=== PATIENT | female | born 1960 | race Caucasian/White ===

== ENCOUNTER 2021-08-30 17:10 | Inpatient (IN) ==
[2021-08-31] MEDS ORDERED: D5% in Water 1,000 ML IVC PRN ×2 (00:54→17:04)
[2021-08-31] MEDS ORDERED: *HR* Dextrose 50 % in Water (Syg) 50 ML SYRINGE IVP PRN ×2 (00:54→17:04)
[2021-08-31] MEDS ORDERED: Dextrose Gel 15 GM/37.5 ML TUBE PO PRN ×4 (00:54→17:04)
[2021-08-31 01:47] LABS: Mean Platelet Volume 10.2 fL (9.4-12.4)
[2021-08-31 01:49] LABS: Hemoglobin 8.5 g/dL (11.5-15.4); Immature Platelets 2.7 % (1.1-6.1); Mean Corpuscular HGB Conc 29.3 g/dL (31.6-35.5); Mean Corpuscular Hemoglobin 24.2 pg (28.0-33.3); Mean Corpuscular Volume 82.6 fL (83.0-100.0); Red Blood Count 3.51 M/mcL (3.82-4.97); Red Cell Distribution Width 14.4 % (11.5-14.5); White Blood Count 6.4 K/mcL (4.3-11.1)
[2021-08-31] MEDS ORDERED: tiZANidine 4 MG TABLET PO PRN ×2 (01:51→17:04)
[2021-08-31] MEDS ORDERED: Perflutren Lipid Microsphere 1.3 ML in 0.9 % Sodium Chloride 8.7 ML IVP PRN ×2 (01:54→17:04)
[2021-08-31] MEDS ORDERED: Acetaminophen 325 MG TABLET PO PRN (01:55)
[2021-08-31] MEDS ORDERED: *HR* OxyCODONE Immed Rel 5 MG TABLET PO PRN (01:55)
[2021-08-31] MEDS ORDERED: Naloxone 0.4 MG/ML INJ IVP PRN ×2 (01:55→17:04)
[2021-08-31 01:59] LABS: INR 1.2; Prothrombin Time 12.9 Seconds (9.4-12.1)
[2021-08-31] MEDS ORDERED: 0.9 % Sodium Chloride 1,000 ML IVC SCH (02:00)
[2021-08-31 02:02] LABS: Activated Partial Thrombo Time 28.4 Seconds (26.0-36.0)
[2021-08-31] MEDS ORDERED: Prochlorperazine 10 MG/2 ML VIAL IVP PRN ×2 (02:03→17:04)
[2021-08-31 02:05] LABS: Albumin 3.8 g/dL (3.5-5.7); Magnesium 1.7 mg/dL (1.6-2.6)
[2021-08-31 02:06] LABS: % Iron Saturation 20 % (15-50); BUN/Creatinine Ratio 24 (6-26); Blood Urea Nitrogen 23 mg/dL (8-23); Calcium 8.6 mg/dL (8.6-10.3); Carbon Dioxide 28 mEq/L (23-29); Chloride 108 mEq/L (98-107); Chol/HDL Ratio 3.8 (0-4.9); Cholesterol 190 mg/dL (< 200); Glucose 170 mg/dL (70-105); HDL Cholesterol 50 mg/dL (40-59); Iron 84 mcg/dL (50-170); LDL Cholesterol,Calculated 102 mg/dL (< 100); Osmolality,Calculated 306 (280-300); Sodium 144 mEq/L (136-145); Transferrin 307 mg/dL (203-362); Triglycerides 191 mg/dL (< 150); eGFR For African Americans > 60 (> 60); eGFR For Non-African Americans 59 (> 60)
[2021-08-31 02:33] LABS: Troponin I < 0.03 ng/mL (< 0.04)
[2021-08-31 02:52] LABS: Ferritin 11 ng/mL (10-120)
[2021-08-31 03:07] LABS: Folate > 22.3 ng/mL (3.0-16.0); Vitamin B12 896 pg/mL (250-1100)
[2021-08-31] MEDS ORDERED: *HR* Metoprolol 5 MG/5 ML VIAL IVP ONE (05:16)
[2021-08-31 06:39] LABS: Estimated Average Glucose 151 mg/dl; Hemoglobin A1C 6.9 %
[2021-08-31] MEDS ORDERED: BuPROPion XL (24 HR) 150 MG TABLET PO SCH ×2 (09:00)
[2021-08-31] MEDS ORDERED: lisinopriL 5 MG TABLET PO SCH (09:00)
[2021-08-31] MEDS ORDERED: amLODIPine 5 MG TABLET PO SCH (09:00)
[2021-08-31] MEDS ORDERED: Gabapentin 400 MG CAPSULE PO SCH (09:00)
[2021-08-31] MEDS ORDERED: Cyanocobalamin (B-12) 1,000 MCG TABLET PO SCH (09:00)
[2021-08-31] MEDS ORDERED: Cholecalciferol (D-3) 1,000 UNIT (25MCG) TABLET PO SCH (09:00)
[2021-08-31] MEDS: Insulin LISPRO 300 UNITS/3 ML VIAL SUBQ SCH ×2 (09:11→12:13)
[2021-08-31] MEDS: clonazePAM 0.5 MG TABLET PO SCH ×3 (09:12→20:08)
[2021-08-31] MEDS ORDERED: Ondansetron 4 MG/2 ML VIAL IVP PRN ×2 (09:30→17:04)
[2021-08-31] MEDS ORDERED: *HR* HYDROmorphone PF 0.5 MG/0.5 ML SYRINGE IVP PRN (09:30)
[2021-08-31] MEDS ORDERED: *HR* HYDROmorphone (PF) 1 MG/ML SYRINGE IVP PRN ×2 (12:33→17:04)
[2021-08-31] MEDS ORDERED: Lidocaine -MPF 2% 5 ML VIAL ONE (14:13)
[2021-08-31] MEDS ORDERED: *HR* Propofol 200 MG/20 ML VIAL IVP ONE (14:13)
[2021-08-31] MEDS ORDERED: *HR* Midazolam HCl 2 MG/2 ML VIAL ONE (14:13)
[2021-08-31] MEDS ORDERED: *HR* FentaNYL (PF) 100 MCG/2 ML VIAL ONE (14:13)
[2021-08-31] MEDS ORDERED: Ondansetron 4 MG/2 ML VIAL ONE (14:13)
[2021-08-31] MEDS ORDERED: *HR* OxyCODONE Immed Rel 5 MG TABLET PO ONE ×2 (14:24→17:04)
[2021-08-31] MEDS ORDERED: Acetaminophen IV 1,000 MG/100 ML BAG IVPB ONE ×2 (14:24→14:29)
[2021-08-31] MEDS ORDERED: Ringers Solution, Lactated 1,000 ML ONE (14:33)
[2021-08-31] MEDS ORDERED: EPHEDrine 50 MG/ML VIAL ONE (14:57)
[2021-08-31] MEDS ORDERED: *HR* Vasopressin 20 UNIT/ML VIAL ONE (15:18)
[2021-08-31] MEDS ORDERED: Iron Sucrose Complex 250 MG in 0.9 % Sodium Chloride 250 ML IVPB SCH (15:45)
[2021-08-31] MEDS: *HR* FentaNYL (PF) 100 MCG/2 ML VIAL IVP PRN ×2 (16:29→16:38)
[2021-08-31] MEDS ORDERED: *HR* FentaNYL (PF) 100 MCG/2 ML VIAL IVP PRN (17:04)
[2021-08-31] MEDS ORDERED: Insulin LISPRO 300 UNITS/3 ML VIAL SUBQ SCH (18:00)
[2021-08-31] MEDS: Gabapentin 400 MG CAPSULE PO SCH (20:08)
[2021-08-31] MEDS: CeFAZolin 2 GM/120 ML BAG IVPB SCH (23:37)
[2021-09-01 05:33] LABS: Mean Corpuscular Hemoglobin 24.2 pg (28.0-33.3); Mean Corpuscular Volume 84.5 fL (83.0-100.0)
[2021-09-01 05:35] LABS: Hematocrit 22.4 % (35.3-44.9); Hemoglobin 6.4 g/dL (11.5-15.4); Immature Granulocytes % 0.4 % (0-4); Immature Platelets 4.1 % (1.1-6.1); Lymphocytes # 1.3 K/mcL (0.6-4.6); Lymphocytes % 17.1 %; Mean Corpuscular HGB Conc 28.6 g/dL (31.6-35.5); Mean Platelet Volume 11.5 fL (9.4-12.4); Monocytes # 0.9 K/mcL (0.0-1.3); Monocytes % 11.4 %; Neutrophils # 5.6 K/mcL (1.6-8.9); Nucleated Red Blood Cells 0.4 /100 WBC (0); Platelet Count 100 K/mcL (140-400); Red Blood Count 2.65 M/mcL (3.82-4.97); Red Cell Distribution Width 14.3 % (11.5-14.5); Segmented Neutrophils % 71.1 %; White Blood Count 7.8 K/mcL (4.3-11.1)
[2021-09-01 05:51] LABS: Calcium 7.9 mg/dL (8.6-10.3); Magnesium 1.8 mg/dL (1.6-2.6); Potassium 4.4 mEq/L (3.5-5.1)
[2021-09-01] MEDS: Acetaminophen 325 MG TABLET PO PRN ×2 (06:25→20:10)
[2021-09-01] MEDS ORDERED: Ringers Solution, Lactated 1,000 ML IVC ONE (07:35)
[2021-09-01] MEDS ORDERED: Iron Sucrose Complex 250 MG in 0.9 % Sodium Chloride 250 ML IVPB SCH (09:00)
[2021-09-01] MEDS: BuPROPion XL (24 HR) 150 MG TABLET PO SCH ×2 (09:40)
[2021-09-01] MEDS: Aspirin Enteric Coated 325 MG Tablet PO SCH (09:41)
[2021-09-01] MEDS: Cyanocobalamin (B-12) 1,000 MCG TABLET PO SCH (09:41)
[2021-09-01] MEDS: clonazePAM 0.5 MG TABLET PO SCH ×3 (09:41→20:01)
[2021-09-01] MEDS: Gabapentin 400 MG CAPSULE PO SCH ×2 (09:42→20:10)
[2021-09-01] MEDS: Cholecalciferol (D-3) 1,000 UNIT (25MCG) TABLET PO SCH (09:42)
[2021-09-01] MEDS ORDERED: Acetaminophen IV 1,000 MG/100 ML BAG IVPB ONE (10:00)
[2021-09-01] MEDS: Insulin LISPRO 300 UNITS/3 ML VIAL SUBQ SCH ×3 (10:14→17:19)
[2021-09-01] MEDS: CeFAZolin 2 GM/120 ML BAG IVPB SCH (10:42)
[2021-09-01] MEDS ORDERED: 0.9 % Sodium Chloride 250 ML ONE (11:06)
[2021-09-01] MEDS: amLODIPine 5 MG TABLET PO SCH (12:26)
[2021-09-01] MEDS ORDERED: tiZANidine 4 MG TABLET PO PRN (12:53)
[2021-09-01 20:15] LABS: Hematocrit 22.6 % (35.3-44.9)
[2021-09-01] MEDS ORDERED: Insulin LISPRO 300 UNITS/3 ML VIAL SUBQ SCH (21:00)
[2021-09-02 05:24] LABS: BUN/Creatinine Ratio 31 (6-26); Blood Urea Nitrogen 34 mg/dL (8-23); Calcium 7.7 mg/dL (8.6-10.3); Carbon Dioxide 25 mEq/L (23-29); Chloride 105 mEq/L (98-107); Glucose 236 mg/dL (70-105); Magnesium 1.8 mg/dL (1.6-2.6); Osmolality,Calculated 299 (280-300); Potassium 3.8 mEq/L (3.5-5.1); Sodium 137 mEq/L (136-145); eGFR For African Americans > 60 (> 60); eGFR For Non-African Americans 50 (> 60)
[2021-09-02 05:29] LABS: Nucleated Red Blood Cells 0.4 /100 WBC (0); Red Blood Count 2.61 M/mcL (3.82-4.97)
[2021-09-02 05:31] LABS: Basophils % 0.4 %; Eosinophils # 0.2 K/mcL (0.0-0.6); Eosinophils % 2.3 %; Hematocrit 21.7 % (35.3-44.9); Hemoglobin 6.6 g/dL (11.5-15.4); Immature Granulocytes % 0.9 % (0-4); Immature Platelets 3.9 % (1.1-6.1); Lymphocytes % 21.9 %; Mean Corpuscular HGB Conc 30.4 g/dL (31.6-35.5); Mean Corpuscular Hemoglobin 25.3 pg (28.0-33.3); Mean Corpuscular Volume 83.1 fL (83.0-100.0); Mean Platelet Volume 10.7 fL (9.4-12.4); Monocytes # 0.9 K/mcL (0.0-1.3); Monocytes % 11.3 %; Red Cell Distribution Width 14.8 % (11.5-14.5); Segmented Neutrophils % 63.2 %; White Blood Count 7.5 K/mcL (4.3-11.1)
[2021-09-02 05:50] LABS: Lymphocytes # 1.6 K/mcL (0.6-4.6); Neutrophils # 4.7 K/mcL (1.6-8.9); Platelet Count 94 K/mcL (140-400)
[2021-09-02] MEDS ORDERED: 0.9 % Sodium Chloride 250 ML IVC SCH (07:30)
[2021-09-02] MEDS ORDERED: Insulin DETEMIR 100 UNIT/ML X5UNITS SUBQ SCH ×2 (09:00→21:00)
[2021-09-02] MEDS: amLODIPine 5 MG TABLET PO SCH (09:11)
[2021-09-02] MEDS: Cholecalciferol (D-3) 1,000 UNIT (25MCG) TABLET PO SCH (09:12)
[2021-09-02] MEDS: BuPROPion XL (24 HR) 150 MG TABLET PO SCH ×2 (09:12)
[2021-09-02] MEDS: clonazePAM 0.5 MG TABLET PO SCH ×3 (09:13→20:44)
[2021-09-02] MEDS: Cyanocobalamin (B-12) 1,000 MCG TABLET PO SCH (09:13)
[2021-09-02] MEDS: Gabapentin 400 MG CAPSULE PO SCH ×2 (09:13→20:44)
[2021-09-02] MEDS: Aspirin Enteric Coated 325 MG Tablet PO SCH (09:13)
[2021-09-02] MEDS: Insulin LISPRO 300 UNITS/3 ML VIAL SUBQ SCH ×4 (09:14→17:51)
[2021-09-02 17:21] LABS: Hematocrit 25.6 % (35.3-44.9); Hemoglobin 8.1 g/dL (11.5-15.4)
[2021-09-03] MEDS: Insulin LISPRO 300 UNITS/3 ML VIAL SUBQ SCH ×5 (03:39→20:59)
[2021-09-03 06:07] LABS: Basophils % 0.4 %; Eosinophils # 0.1 K/mcL (0.0-0.6); Eosinophils % 1.7 %; Hemoglobin 7.8 g/dL (11.5-15.4); Immature Granulocytes % 2.4 % (0-4); Lymphocytes # 1.6 K/mcL (0.6-4.6); Lymphocytes % 18.8 %; Mean Corpuscular HGB Conc 32.5 g/dL (31.6-35.5); Mean Corpuscular Hemoglobin 27.3 pg (28.0-33.3); Mean Corpuscular Volume 83.9 fL (83.0-100.0); Mean Platelet Volume 10.8 fL (9.4-12.4); Monocytes # 0.9 K/mcL (0.0-1.3); Monocytes % 10.9 %; Neutrophils # 5.5 K/mcL (1.6-8.9); Nucleated Red Blood Cells 0.7 /100 WBC (0); Platelet Count 112 K/mcL (140-400); Red Blood Count 2.86 M/mcL (3.82-4.97); Red Cell Distribution Width 15.1 % (11.5-14.5); Segmented Neutrophils % 65.8 %; White Blood Count 8.3 K/mcL (4.3-11.1)
[2021-09-03 06:25] LABS: BUN/Creatinine Ratio 40 (6-26); Blood Urea Nitrogen 34 mg/dL (8-23); Calcium 8.2 mg/dL (8.6-10.3); Carbon Dioxide 26 mEq/L (23-29); Chloride 104 mEq/L (98-107); Glucose 283 mg/dL (70-105); Magnesium 1.7 mg/dL (1.6-2.6); Osmolality,Calculated 302 (280-300); Potassium 4.1 mEq/L (3.5-5.1); Sodium 137 mEq/L (136-145); eGFR For African Americans > 60 (> 60); eGFR For Non-African Americans > 60 (> 60)
[2021-09-03] MEDS: Cholecalciferol (D-3) 1,000 UNIT (25MCG) TABLET PO SCH (08:48)
[2021-09-03] MEDS: amLODIPine 5 MG TABLET PO SCH (08:48)
[2021-09-03] MEDS: BuPROPion XL (24 HR) 150 MG TABLET PO SCH ×2 (08:48)
[2021-09-03] MEDS: Aspirin Enteric Coated 325 MG Tablet PO SCH (08:48)
[2021-09-03] MEDS: clonazePAM 0.5 MG TABLET PO SCH ×3 (08:49→20:57)
[2021-09-03] MEDS: Gabapentin 400 MG CAPSULE PO SCH ×2 (08:49→20:57)
[2021-09-03] MEDS: Cyanocobalamin (B-12) 1,000 MCG TABLET PO SCH (08:49)
[2021-09-03] MEDS ORDERED: Insulin DETEMIR 100 UNIT/ML X5UNITS SUBQ SCH (09:00)
[2021-09-03] MEDS: lisinopriL 5 MG TABLET PO SCH (11:08)
[2021-09-03] MEDS ORDERED: Insulin LISPRO 300 UNITS/3 ML VIAL SUBQ ONE (16:08)
[2021-09-03] MEDS: Insulin DETEMIR 100 UNIT/ML X5UNITS SUBQ SCH (20:57)
[2021-09-04 04:58] LABS: Basophils % 0.5 %; Eosinophils # 0.1 K/mcL (0.0-0.6); Eosinophils % 1.5 %; Hematocrit 21.6 % (35.3-44.9); Immature Granulocytes % 2.4 % (0-4); Lymphocytes % 25.5 %; Mean Corpuscular HGB Conc 32.4 g/dL (31.6-35.5); Mean Corpuscular Hemoglobin 27.6 pg (28.0-33.3); Mean Platelet Volume 10.2 fL (9.4-12.4); Monocytes # 0.9 K/mcL (0.0-1.3); Monocytes % 11.8 %; Neutrophils # 4.6 K/mcL (1.6-8.9); Nucleated Red Blood Cells 0.9 /100 WBC (0); Platelet Count 119 K/mcL (140-400); Red Blood Count 2.54 M/mcL (3.82-4.97); Red Cell Distribution Width 15.9 % (11.5-14.5); Segmented Neutrophils % 58.3 %; White Blood Count 7.9 K/mcL (4.3-11.1)
[2021-09-04 05:16] LABS: BUN/Creatinine Ratio 40 (6-26); Blood Urea Nitrogen 34 mg/dL (8-23); Calcium 7.8 mg/dL (8.6-10.3); Carbon Dioxide 26 mEq/L (23-29); Chloride 104 mEq/L (98-107); Glucose 231 mg/dL (70-105); Magnesium 1.8 mg/dL (1.6-2.6); Osmolality,Calculated 297 (280-300); Potassium 3.7 mEq/L (3.5-5.1); Sodium 136 mEq/L (136-145); eGFR For African Americans > 60 (> 60); eGFR For Non-African Americans > 60 (> 60)
[2021-09-04] MEDS: Cholecalciferol (D-3) 1,000 UNIT (25MCG) TABLET PO SCH (08:48)
[2021-09-04] MEDS: clonazePAM 0.5 MG TABLET PO SCH ×3 (08:48→21:13)
[2021-09-04] MEDS: Metoprolol XL (24 HR) Succ 25 MG TAB.ER.24H PO SCH (08:48)
[2021-09-04] MEDS: Insulin LISPRO 300 UNITS/3 ML VIAL SUBQ SCH ×4 (08:48→21:17)
[2021-09-04] MEDS: Gabapentin 400 MG CAPSULE PO SCH ×2 (08:48→21:13)
[2021-09-04] MEDS: Cyanocobalamin (B-12) 1,000 MCG TABLET PO SCH (08:48)
[2021-09-04] MEDS: amLODIPine 5 MG TABLET PO SCH (08:49)
[2021-09-04] MEDS: Aspirin Enteric Coated 325 MG Tablet PO SCH (08:49)
[2021-09-04] MEDS: lisinopriL 5 MG TABLET PO SCH (08:49)
[2021-09-04] MEDS: BuPROPion XL (24 HR) 150 MG TABLET PO SCH ×2 (08:49)
[2021-09-04] MEDS: Insulin DETEMIR 100 UNIT/ML X5UNITS SUBQ SCH ×2 (08:50→21:16)
[2021-09-04] MEDS: Acetaminophen 325 MG TABLET PO PRN (21:13)
[2021-09-05 04:35] LABS: Basophils % 0.4 %; Eosinophils # 0.2 K/mcL (0.0-0.6); Eosinophils % 2.1 %; Hematocrit 21.5 % (35.3-44.9); Hemoglobin 6.8 g/dL (11.5-15.4); Lymphocytes # 1.9 K/mcL (0.6-4.6); Lymphocytes % 24.9 %; Mean Corpuscular HGB Conc 31.6 g/dL (31.6-35.5); Mean Corpuscular Hemoglobin 27.1 pg (28.0-33.3); Mean Corpuscular Volume 85.7 fL (83.0-100.0); Monocytes # 0.9 K/mcL (0.0-1.3); Monocytes % 11.5 %; Neutrophils # 4.4 K/mcL (1.6-8.9); Nucleated Red Blood Cells 2.1 /100 WBC (0); Platelet Count 130 K/mcL (140-400); Red Blood Count 2.51 M/mcL (3.82-4.97); Red Cell Distribution Width 17.5 % (11.5-14.5); Segmented Neutrophils % 56.1 %; White Blood Count 7.8 K/mcL (4.3-11.1)
[2021-09-05 04:51] LABS: BUN/Creatinine Ratio 39 (6-26); Blood Urea Nitrogen 38 mg/dL (8-23); Calcium 8.4 mg/dL (8.6-10.3); Carbon Dioxide 26 mEq/L (23-29); Chloride 105 mEq/L (98-107); Glucose 251 mg/dL (70-105); Magnesium 1.8 mg/dL (1.6-2.6); Osmolality,Calculated 302 (280-300); Potassium 3.9 mEq/L (3.5-5.1); Sodium 137 mEq/L (136-145); eGFR For African Americans > 60 (> 60); eGFR For Non-African Americans 57 (> 60)
[2021-09-05] MEDS ORDERED: 0.9 % Sodium Chloride 250 ML IVC SCH ×2 (07:15→17:45)
[2021-09-05] MEDS: Gabapentin 400 MG CAPSULE PO SCH ×2 (08:06→21:08)
[2021-09-05] MEDS: Insulin LISPRO 300 UNITS/3 ML VIAL SUBQ SCH ×4 (08:06→21:09)
[2021-09-05] MEDS: Metoprolol XL (24 HR) Succ 25 MG TAB.ER.24H PO SCH (08:07)
[2021-09-05] MEDS: Aspirin Enteric Coated 325 MG Tablet PO SCH (08:07)
[2021-09-05] MEDS: Cyanocobalamin (B-12) 1,000 MCG TABLET PO SCH (08:07)
[2021-09-05] MEDS: BuPROPion XL (24 HR) 150 MG TABLET PO SCH ×2 (08:07→08:08)
[2021-09-05] MEDS: clonazePAM 0.5 MG TABLET PO SCH ×3 (08:08→21:08)
[2021-09-05] MEDS: Cholecalciferol (D-3) 1,000 UNIT (25MCG) TABLET PO SCH (08:08)
[2021-09-05] MEDS: lisinopriL 5 MG TABLET PO SCH (08:08)
[2021-09-05] MEDS: amLODIPine 5 MG TABLET PO SCH (08:08)
[2021-09-05] MEDS: Insulin DETEMIR 100 UNIT/ML X5UNITS SUBQ SCH ×2 (08:10→21:08)
[2021-09-05] MEDS ORDERED: Ringers Solution, Lactated 1,000 ML ONE (12:20)
[2021-09-05] MEDS ORDERED: Ringers Solution, Lactated 1,000 ML IVC ONE (13:26)
[2021-09-05 15:47] LABS: Hematocrit 21.4 % (35.3-44.9); Hemoglobin 6.7 g/dL (11.5-15.4)
[2021-09-05 18:34] LABS: Hematocrit 23.2 % (35.3-44.9); Hemoglobin 7.2 g/dL (11.5-15.4)
[2021-09-05] MEDS: Acetaminophen 325 MG TABLET PO PRN (23:22)
[2021-09-06 05:22] LABS: Basophils % 0.5 %; Eosinophils # 0.1 K/mcL (0.0-0.6); Hematocrit 27.7 % (35.3-44.9); Hemoglobin 8.8 g/dL (11.5-15.4); Immature Granulocytes % 4.2 % (0-4); Immature Platelets 4.2 % (1.1-6.1); Lymphocytes # 1.5 K/mcL (0.6-4.6); Lymphocytes % 24.5 %; Mean Corpuscular HGB Conc 31.8 g/dL (31.6-35.5); Mean Corpuscular Hemoglobin 27.3 pg (28.0-33.3); Monocytes # 0.7 K/mcL (0.0-1.3); Neutrophils # 3.5 K/mcL (1.6-8.9); Red Blood Count 3.22 M/mcL (3.82-4.97); Red Cell Distribution Width 17.1 % (11.5-14.5); Segmented Neutrophils % 57.8 %
[2021-09-06 05:25] LABS: Platelet Count 96 K/mcL (140-400)
[2021-09-06 05:34] LABS: BUN/Creatinine Ratio 34 (6-26); Blood Urea Nitrogen 34 mg/dL (8-23); Calcium 7.8 mg/dL (8.6-10.3); Carbon Dioxide 24 mEq/L (23-29); Chloride 107 mEq/L (98-107); Glucose 240 mg/dL (70-105); Magnesium 1.8 mg/dL (1.6-2.6); Osmolality,Calculated 299 (280-300); Potassium 3.9 mEq/L (3.5-5.1); Sodium 137 mEq/L (136-145); eGFR For African Americans > 60 (> 60); eGFR For Non-African Americans 57 (> 60)
[2021-09-06] MEDS: BuPROPion XL (24 HR) 150 MG TABLET PO SCH ×2 (08:08)
[2021-09-06] MEDS: Cholecalciferol (D-3) 1,000 UNIT (25MCG) TABLET PO SCH (08:09)
[2021-09-06] MEDS: Gabapentin 400 MG CAPSULE PO SCH ×2 (08:09→19:53)
[2021-09-06] MEDS: Cyanocobalamin (B-12) 1,000 MCG TABLET PO SCH (08:09)
[2021-09-06] MEDS: clonazePAM 0.5 MG TABLET PO SCH ×3 (08:09→19:53)
[2021-09-06] MEDS: Aspirin Enteric Coated 325 MG Tablet PO SCH (08:09)
[2021-09-06] MEDS: Insulin LISPRO 300 UNITS/3 ML VIAL SUBQ SCH ×4 (08:10→19:56)
[2021-09-06] MEDS: Insulin DETEMIR 100 UNIT/ML X5UNITS SUBQ SCH ×2 (08:10→19:53)
[2021-09-07 05:26] LABS: Red Blood Count 3.02 M/mcL (3.82-4.97)
[2021-09-07 05:28] LABS: Basophils % 0.5 %; Eosinophils # 0.1 K/mcL (0.0-0.6); Eosinophils % 1.8 %; Hemoglobin 8.3 g/dL (11.5-15.4); Immature Granulocytes % 2.3 % (0-4); Immature Platelets 4.3 % (1.1-6.1); Lymphocytes # 1.6 K/mcL (0.6-4.6); Lymphocytes % 26.4 %; Mean Corpuscular HGB Conc 30.7 g/dL (31.6-35.5); Mean Corpuscular Hemoglobin 27.5 pg (28.0-33.3); Mean Corpuscular Volume 89.4 fL (83.0-100.0); Mean Platelet Volume 10.8 fL (9.4-12.4); Monocytes # 0.7 K/mcL (0.0-1.3); Monocytes % 11.7 %; Neutrophils # 3.5 K/mcL (1.6-8.9); Nucleated Red Blood Cells 0.7 /100 WBC (0); Red Cell Distribution Width 18.3 % (11.5-14.5); Segmented Neutrophils % 57.3 %; White Blood Count 6.1 K/mcL (4.3-11.1)
[2021-09-07 05:32] LABS: Platelet Count 95 K/mcL (140-400)
[2021-09-07 05:46] LABS: BUN/Creatinine Ratio 43 (6-26); Blood Urea Nitrogen 32 mg/dL (8-23); Calcium 7.9 mg/dL (8.6-10.3); Carbon Dioxide 24 mEq/L (23-29); Chloride 107 mEq/L (98-107); Glucose 227 mg/dL (70-105); Osmolality,Calculated 298 (280-300); Potassium 3.9 mEq/L (3.5-5.1); Sodium 137 mEq/L (136-145); eGFR For African Americans > 60 (> 60); eGFR For Non-African Americans > 60 (> 60)
[2021-09-07] MEDS: clonazePAM 0.5 MG TABLET PO SCH (07:34)
[2021-09-07] MEDS: Insulin DETEMIR 100 UNIT/ML X5UNITS SUBQ SCH (07:35)
[2021-09-07] MEDS: Gabapentin 400 MG CAPSULE PO SCH (07:35)
[2021-09-07] MEDS: Cyanocobalamin (B-12) 1,000 MCG TABLET PO SCH (07:35)
[2021-09-07] MEDS: Cholecalciferol (D-3) 1,000 UNIT (25MCG) TABLET PO SCH (07:35)
[2021-09-07] MEDS: BuPROPion XL (24 HR) 150 MG TABLET PO SCH ×2 (07:35)
[2021-09-07] MEDS: Insulin LISPRO 300 UNITS/3 ML VIAL SUBQ SCH ×2 (07:48→12:00)
[2021-09-07 10:58] LABS: Influenza A PCR Negative (Negative); Influenza B PCR Negative (Negative); Resp. Syncytial Virus PCR Negative (Negative)
[2021-09-07 10:59] LABS: SARS-CoV-2 by PCR (In House) Negative (Negative)
[2021-09-07 11:56] VITALS: BP 149/77; PULSE 90; TEMP 97.8; O2SAT 94
== END 2021-09-07 13:00 | DRG 481 ==
LOC: 4WAOSI → SUATTDRO 08-31 01:55
PROVIDERS: ADMIT Family Medicine; ATTEND Internal Medicine